=== PATIENT | female | born 1985 | race African-American/Black ===

== ENCOUNTER 2017-01-13 14:22 | Emergency (ER) | payer OTHER ==
[~2017-01-13] VITALS: Ht 167.6 cm; Wt 70.3 kg
[~2017-01-13 14:22] MED LIST: ACET50TA PO; IBUP80TA PO; MULTTAB20 PO
[2017-01-13] MEDS ORDERED: CLEO300C2 PO (14:55)
[2017-01-13] MEDS ORDERED: CLINDAMYCIN 150 MG CAP PO ONE (15:00)
[2017-01-13 15:32] VITALS: BP 125/58
[2017-01-13] MEDS ORDERED: ONDANSETRON 4 MG ORAL DISINTEGRATING TAB (S0181) PO ONE (15:45)
[2017-01-13] MEDS ORDERED: IBUPROFEN 100 MG/5 ML SUSP UDC DYE FREE PO ONE (15:45)
== END 2017-01-13 16:33 | disposition home or self-care (01) ==
LOC: M ED 15:22
DX: J02.8 Acute pharyngitis due to other specified organisms (principal); Z88.8 Allergy status to other drugs, medicaments and biological substances